=== PATIENT | male | born 1950 | race Caucasian/White ===

== ENCOUNTER 2022-07-01 07:37 | Emergency (ER) | payer MEDICARE ==
[~2022-07-01] VITALS: Ht 170.2 cm; Wt 78.5 kg
--- NOTE | 2022-07-01 08:13 | ED GU-Male ---
General Chief Complaint: - Reproductive Stated Complaint: BLADDER ISSUES Nursing Triage Note: PT AMB TO [facility] WITH COMPLAINT OF BURNING ON URINATION AND GROIN PAIN. STATES HAS BEEN DEALING WITH THESE SYMPTOMS INTERMITTENTLY SINCE LAST YEAR. HAS BEEN SEEN BY PCP AND BEEN TAKING AZO OVER THE COUNTER. HAS REFERRAL TO UROLOGIST IN [place]. Source: patient, family Exam Limitations: no limitations History of Present Illness Date Seen by Provider: Jul 01, 2022 Time Seen by Provider: 07:56 Initial Comments 71-year-old male with past medical history most notable for BPH and frequent UTIs coming in due to burning with urination and groin discomfort. He states this has been ongoing for years, improved when he moved from [place] back to [place] many months ago. Symptoms started getting worse about a month ago. He just finished antibiotics for UTI a week ago. Has not had any fever, severe abdominal pain, nausea, vomiting, diarrhea, weakness, numbness, rash, or any other concerns. He is following up with a urologist soon he hopes, but his regular urologist retired. He states he is having no problems getting urine out this time but has had a Rosenberg in the past. Allergies and Home Medications Allergies Coded Allergies: No Known Drug Allergies (Unverified , 07/01/22) Patient Home Medication List Home Medication List Reviewed: Yes Review of Systems Review of Systems Constitutional: No fever EENTM: no symptoms reported Respiratory: no symptoms reported Cardiovascular: no symptoms reported Gastrointestinal: no symptoms reported Genitourinary: see HPI Musculoskeletal: no symptoms reported Skin: no symptoms reported Psychiatric/Neurological: No Symptoms Reported Endocrine: No Symptoms Reported Hematologic/Lymphatic: No Symptoms Reported All Other Systemes Reviewed Negative Unless Noted: Yes Past Owremll-Vpuobt-Pavqlc Hx Patient Social History Tobacco Use?: No Use of E-Cig and/or Vaping dev: No Substance use?: No Alcohol Use?: No Pt feels they are or have been: No Physical Exam Vital Signs Vital Signs - First Documented 07/01/22 07:50 Temp 36.1 Pulse 111 Resp 20 B/P (MAP) 117/97 (104) Pulse Ox 96 O2 Delivery Room Air Capillary Refill : Height, Weight, BMI Height: '" Weight: lbs. oz. kg; 27.00 BMI Method: General Appearance: WD/WN, other (Standing up, appears uncomfortable but nontoxic) HEENT: PERRL/EOMI, normal ENT inspection, pharynx normal Neck: non-tender, full range of motion, supple, normal inspection Cardiovascular: regular rate, rhythm, no edema, no murmur Respiratory: chest non-tender, lungs clear, normal breath sounds, no respiratory distress, no accessory muscle use Gastrointestinal: normal bowel sounds, non tender, soft; No guarding, No rebound Back: normal inspection, no CVA tenderness Extremities: normal range of motion, non-tender, normal inspection, no pedal edema, no calf tenderness, normal capillary refill Neurologic/Psychiatric: no motor/sensory deficits, alert, normal mood/affect Skin: normal color, warm/dry Lymphatic: no adenopathy Progress/Results/Core Measures Suspected Sepsis SIRS Temperature: Pulse: 111 Respiratory Rate: 20 Blood Pressure 117 /97 Mean: 104 Results/Orders Lab Results Laboratory Tests Test 07/01/22 08:43 Range/Units Urine Color ORANGE Urine Clarity CLEAR Urine pH 7.5 5-9 Urine Specific [place] 1.025 H 1.016-1.022 Urine Protein TRACE H NEGATIVE Urine Glucose (UA) TRACE H NEGATIVE Urine Ketones NEGATIVE NEGATIVE Urine Nitrite POSITIVE H NEGATIVE Urine Bilirubin NEGATIVE NEGATIVE Urine Urobilinogen 1.0 < = 1.0 MG/DL Urine Leukocyte Esterase NEGATIVE NEGATIVE Urine RBC (Auto) NEGATIVE NEGATIVE Urine RBC RARE /HPF Urine WBC RARE /HPF Urine Squamous Epithelial Cells RARE /HPF Urine Crystals PRESENT H /LPF Urine Amorphous Sediment RARE KIARA PHOSPHATE H /LPF Urine Bacteria TRACE /HPF Urine Casts NONE /LPF Urine Mucus SMALL H /LPF Urine Culture Indicated NO My Orders Orders - SEAMUS TORRES MD Ua Culture If Indicated (07/01/22 08:08) Vital Signs/I&O 07/01/22 07:50 Temp 36.1 Pulse 111 Resp 20 B/P (MAP) 117/97 (104) Pulse Ox 96 O2 Delivery Room Air Capillary Refill : Blood Pressure Mean: 104 Progress Note : Progress Note 71-year-old male presenting for dysuria. ABCs were intact and vitals were stable on presentation. Physical exam reassuring including a soft and nontender abdomen. The patient was able to urinate, he feels as if he was emptying, and I did a postvoid ultrasound showing he has a calculated 161 cc of urine left over based on measurements of his bladder. This is certainly retaining some urine, but not enough that I would place a Rosenberg, especially given his difficulty with urology follow-up. This likely is the cause for his recurrent UTIs, however. Urine does have nitrites, trace bacteria, given his symptoms we will treat him with Macrobid. We have no microbiology data here to go off of, so we will send a culture for the future. He last was on Levaquin a couple weeks ago for 7 days. We will give him 10 days to hopefully get him through to his urology appointment given his difficulty with complete urinary clearance. Departure Impression Primary Impression: Cystitis Disposition: HOME, SELF-CARE Condition: Stable Departure-Patient Inst. Decision time for Depature: 09:20 Referrals: LEXI DELGADO DO (PCP/Family) Primary Care Physician Patient Instructions: Urinary Tract Infection, Adult ED Add. Discharge Instructions: He will be on Macrobid for the next 10 days, twice a day. Take Tylenol as neede d for pain. Please follow-up with urologist as you are trying to as soon as possible. If he have any problems with urinary retention where you cannot get the urine out, please call your doctor right away or come back to the ER. Scripts Nitrofurantoin Monohyd/M-Cryst (Macrobid 100 mg Capsule) 100 Mg Capsule 1 TAB PO BID for 10 Days, #20 CAP Prov: SEAMUS TORRES MD 07/01/22 SEAMUS TORRES MD Jul 01, 2022 08:13
[2022-07-01 08:50] LABS: BILIRUBIN,URINE NEGATIVE (NEGATIVE); CLARITY,URINE CLEAR; COLOR,URINE ORANGE; GLUCOSE, URINE (UA) TRACE (NEGATIVE); KETONES,URINE NEGATIVE (NEGATIVE); LEUKOCYTE ESTERASE ,URINE NEGATIVE (NEGATIVE); NITRITE,URINE POSITIVE (NEGATIVE); PH,URINE 7.5 (5-9); PROTEIN,URINE TRACE (NEGATIVE)
[2022-07-01 09:02] LABS: AMORPHOUS SEDIMENT,UR RARE AMOR PHOSPHATE /LPF; BACTERIA,URINE TRACE /HPF; RBC,URINE RARE /HPF; SQUAMOUS EPITHELIAL CELL,UR RARE /HPF; WBC,URINE RARE /HPF
[2022-07-01] MEDS ORDERED: NITR-65 PO (09:21)
[2022-07-01 09:35] VITALS: BP 126/96
== END 2022-07-01 09:35 | disposition home or self-care (01) ==
LOC: EDUNIT# 07:37 → ER 07:42
DX: N30.90 Cystitis, unspecified without hematuria (principal)
CPT/HCPCS: 81000; 87088; 99282